=== PATIENT | male | born 1935 | race Two or more races ===

== ENCOUNTER 2020-04-05 08:27 | Outpatient (CLI) | payer OTHER | END 2020-04-05 08:37 | disposition home or self-care (01) | LOC: RX STUDY 08:27 | PROVIDERS: ATTEND Internal Medicine Gastroenterology | DX: Q39.6 Congenital diverticulum of esophagus (principal); K44.9 Diaphragmatic hernia without obstruction or gangrene; R10.13 Epigastric pain ==